=== PATIENT | male | born 1955 | race Hispanic/Latino ===

== ENCOUNTER 2017-10-08 20:59 | Emergency (ER) | payer OTHER ==
[2017-10-08] MEDS ORDERED: HYDROcodone/Acetaminophen 5/325 mg Tablet ONE (21:41)
--- NOTE | 2017-10-09 09:06 | RAD ---
FOUR VIEWS LEFT KNEE: 10/08/17 HISTORY: Patient walking at home when he felt a pop in the left leg with immediate fall. Patient has severe pa in . AP, lateral and both oblique views left knee is obtained. Four views left knee demonstrate no evidence of left knee fractures, subluxations, or bony lesions. There is a moderate sized suprapatellar area of density compatible with likely a possible hemarthrosi s. IMPRESSION: Suprapatellar area of increased density concerning for hemarthrosis. No definite evidence of acute fr acture is seen. POS: [facility]
--- NOTE | 2017-10-09 09:07 | CT ---
CT LEFT KNEE: 10/08/17 HISTORY: Hemarthrosis. Axial images are obtained with coronal and sagittal reconstructions. CT images demonstrate a suprapatellar joint effusion. No evidence of acute left knee fractures seen. The distal femur, patella, tibial plateau and proximal left fibula are unremarkable. IMPRESSION: Suprapatellar joint effusion. Otherwise, unremarkable CT left knee with no evidence of acute bony les ions seen. POS: [facility]
== END 2017-10-08 23:36 | disposition home or self-care (01) ==
LOC: ERS 20:59
DX: S83.92XA Sprain of unspecified site of left knee, initial encounter (principal); E10.9 Type 1 diabetes mellitus without complications; Z79.899 Other long term (current) drug therapy; Z79.84 Long term (current) use of oral hypoglycemic drugs; Z79.82 Long term (current) use of aspirin; W19.XXXA Unspecified fall, initial encounter